=== PATIENT | female | born 1950 | race Caucasian/White ===

== ENCOUNTER → 2016-09-27 | Outpatient (CLI) | payer OTHER ==
--- NOTE | 2016-09-27 15:35 | MRI ---
EXAM DESCRIPTION: Cervical Spine CLINICAL HISTORY: OTHER SPONDYLOSIS W/ MYELOPATHY, CERV REGION neck pain, stiffness, arm tingling and pain COMPARISON: None Available TECHNIQUE: Multiplanar multi sequence noncontrast imaging FINDINGS: There is good alignment of the cervical spine. There is no vertebral abnormality. Craniocervical junction and the cord are unremarkable. A 1.53 cm diameter mass is observed in the right thyroid lobe. Further evaluation with sonography should be considered. C2-3: Unremarkable. C3-4: Unremarkable. C4-5: Disc desiccation is observed. Mild loss of disc height is noted. No significant disc bulge or disc herniation is seen. Facet joint and uncovertebral joint arthritis are seen to narrow the right neural foramen. C5-6: Mild loss of disc height is observed. Disc desiccation is noted. No significant disc bulge or disc herniation is seen. The neural foramina are preserved. C6-7: The disc is desiccated. Mild loss of disc height is observed. No significant disc bulge or disc herniation is seen. Mild bilateral neural foraminal narrowing is observed. C7-T1: Unremarkable. IMPRESSION: 1. A right thyroid lobe mass is observed. Further evaluation with sonography should be considered. 2. Right neural foraminal narrowing is observed at the C4-5 levels result of facet joint and uncovertebral joint arthritis. 3. Disc degenerative changes are seen at the C5-6 and C6-7 levels. There is some mild bilateral neural foraminal narrowing detected at the C6-7 level as a result of facet joint and uncovertebral joint arthritis. Electronically signed by: Kenyon Araujo MD 09/27/2016 3:34 PM CDT
== END | disposition home or self-care (01) ==
LOC: MRI 11:09
PROVIDERS: ATTEND Neurological Surgery
DX: M47.12 Other spondylosis with myelopathy, cervical region (principal)

== ENCOUNTER → 2016-12-26 | Outpatient (CLI) | payer OTHER | END | disposition home or self-care (01) | LOC: GMAL 16:57 | PROVIDERS: ATTEND Family Medicine | DX: E03.9 Hypothyroidism, unspecified (principal) ==

== ENCOUNTER → 2017-09-24 | Outpatient (CLI) | payer OTHER | LOC: GMAJS 16:30 | PROVIDERS: ATTEND Physician Assistant | DX: R30.0 Dysuria (principal) ==

== ENCOUNTER → 2018-03-01 | Day surgery (SDC) | payer OTHER ==
--- NOTE | 2018-02-26 08:49 | SSS ---
CHIEF COMPLAINT: Need for screening colonoscopy. HISTORY OF PRESENT ILLNESS: Ms. Monson is a 67-year-old female who presented to my office to schedule a colonoscopy. 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 She denies any symptoms referable to her bowels, specifically no abdominal pain, changes in her bowel habits or blood in her stool. Risks and benefits were discussed and she is agreeable to proceeding. PAST MEDICAL HISTORY: 1. Non-insulin dependent diabetes mellitus. 2. Hyperlipidemia. 3. Hypertension. 4. Gastroesophageal reflux disease, treated by Micheal fundoplication. 5. Restless leg syndrome. 6. Hypothyroidism. 7. Migraine headaches. 8. Depression. 9. Season allergies. PAST OBSTETRICAL HISTORY: She is 0, para 0. PAST SURGICAL HISTORY: 1. Right knee surgery in 1991. 2. Right elbow surgery in 1997. 3. Partial thyroidectomy for benign disease per the patient in 1999. 4. Laparoscopic Micheal fundoplication in 08/31/05. 5. Colonoscopy around 2003, results unknown. 6. Nuclear stress test in 2009 that showed normal perfusion with ejection fraction of 70%. CURRENT MEDICATIONS: 1. Levothyroxine. 2. Nortriptyline. 3. Aspirin 81 mg. 4. Topamax. 5. Lunesta. 6. Fish oil. 7. Lyrica. 8. Magnesium. 9. Multivitamins. 10. Restasis. 11. Calcium. 12. Relpax p.r.n. ALLERGIES: PENICILLIN WHICH CAUSES HIVES. FAMILY HISTORY: Her father at age 82 secondary to congestive heart failure. He also had a pacemaker. Her mother of congestive heart failure. She also had a four vessel coronary artery bypass graft and type 2 diabetes. She has one brother and two sisters. Carmita has breast cancer and Hermelinda is in good health. 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 She is . One of her husbands secondary to colon cancer. She has never smoked. She consumes alcohol perhaps once a month, usually wine. PHYSICAL EXAMINATION: VITAL SIGNS: Blood pressure 130/86. Pulse 89. GENERAL: She is awake, alert and in no acute distress. HEENT: Unremarkable. NECK: Supple. LUNGS: Clear. CARDIOVASCULAR: Regular rate and rhythm without appreciable murmurs. ABDOMEN: Soft, nontender. RECTAL: Deferred until time of colonoscopy. EXTREMITIES: Without edema. NEUROLOGIC: Nonfocal. ASSESSMENT: 1. Need for screening colonoscopy. PLAN: Colonoscopy on 03/01/18. [id number]
[~2018-03-01] MED LIST: LACTATED RINGERS 1,000 ML ONE; LIDOCAINE 1% 10 ML VIAL INJ ONE; PROPOFOL 200 MG/20 ML VIAL IV ONE
--- NOTE | 2018-03-01 08:48 | OP ---
DATE OF PROCEDURE: 03/01/18 PREOPERATIVE DIAGNOSIS: 1. Screening colonoscopy. POSTOPERATIVE DIAGNOSIS: 1. 0.75 x 1 cm hepatic flexure polyp, biopsied times 3 and removed by hot snare. 2. Mild melanosis coli in the rectum and distal sigmoid. 3. Grade 2 internal hemorrhoids. 4. Otherwise normal colonoscopy to the cecum/terminal ileum. PROCEDURE: 1. Colonoscopy. SURGEON: Kenyon Mcallister MD. ESTIMATED BLOOD LOSS: Less than 1 mL. COMPLICATIONS: No immediate complications. ANESTHESIA: Propofol 900 mg administered intravenously via Jet Hayes CRNA. TECHNIQUE: After informed consent was obtained from the patient, the patient was taken to the Endoscopy Suite and placed in the left lateral decubitus position. Vital signs were monitored throughout the procedure. Supplemental oxygen was administered throughout the procedure. After adequate conscious sedation was obtained, digital rectal examination was performed, which was unremarkable. The colonoscope was then advanced into the patient's rectum and up through the sigmoid, descending, transverse and ascending colon to the level of the cecum. There was a little bit of looping experienced in the hepatic flexure region, but with manual pressure and withdrawal and reinsertion, this was navigated. The usual cecal landmarks were noted. Just prior to reaching the cecum, in the hepatic flexure an approximately 1 x 1 cm polyp was noted and biopsied times 3. The cecum was then reached. The terminal ileum was entered. The terminal ileum, cecum and appendiceal orifice were all photographed. Upon withdrawal, I removed the polyp by hot snare. It was too large to go through the suction port, so we had a hold of it with biopsy forceps and removed it with the scope. The rest of the colon was visualized as well as possible, taking great care to try to visualize all meeks in 360 degree fashion. Overall, the bowel prep was quite good with the exception of the cecum where there was a moderate amount of liquid stool. Effort had been made to try to suction out as much of this as possible prior to removing the polyp at the hepatic flexure. There were no diverticula noted. In the rectum, the colonoscope was retroflexed upon itself. Grade 1 to 2 internal hemorrhoids were noted. The colonoscope was then unretroflexed and air was suctioned out of the patient's rectum. The colonoscope was removed from the patient. PLAN: She is to followup in my office in 7 to 10 days to review the pathology report. We will repeat her colonoscopy no greater than 3 years from now. This will depend on the polyp pathology. [id number]
[2018-03-01 09:35] VITALS: BP 144/97; TEMP 96.2; O2SAT 95
== END ==
LOC: AMB 05:49
PROVIDERS: ATTEND Family Medicine
DX: Z12.11 Encounter for screening for malignant neoplasm of colon (principal); D12.3 Benign neoplasm of transverse colon; K63.89 Other specified diseases of intestine; K64.1 Second degree hemorrhoids; E11.9 Type 2 diabetes mellitus without complications; E78.5 Hyperlipidemia, unspecified; I10 Essential (primary) hypertension; G25.81 Restless legs syndrome; G43.909 Migraine, unspecified, not intractable, without status migrainosus; F32.9 Major depressive disorder, single episode, unspecified; E89.0 Postprocedural hypothyroidism; E66.9 Obesity, unspecified; K21.9 Gastro-esophageal reflux disease without esophagitis; Z88.0 Allergy status to penicillin; Z79.84 Long term (current) use of oral hypoglycemic drugs; Z79.82 Long term (current) use of aspirin; Z79.899 Other long term (current) drug therapy
CPT/HCPCS: 00812; 36416; 45385; 82948; J3490; J7120

== ENCOUNTER → 2018-05-10 | Outpatient (CLI) | payer OTHER ==
--- NOTE | 2018-05-10 08:40 | RAD ---
EXAM DESCRIPTION: Pelvis CLINICAL HISTORY: 67 years Female, PAIN IN RIGHT HIP COMPARISON: None. TECHNIQUE: AP radiograph of the pelvis was performed. FINDINGS: The pelvic ring appears grossly intact on this single AP radiograph. No acute fracture or dislocation. Bilateral sacroiliac joints appear normal. Mild degenerative changes are identified in both hips.. The visualized lumbo-sacral spine demonstrates mild degenerative changes. IMPRESSION: Single AP radiograph of the pelvis demonstrates grossly intact pelvic ring. Mild bilateral hip osteoarthritis. Electronically signed by: Carmen Irvin MD 05/10/2018 8:38 AM [facility]
--- NOTE | 2018-05-10 08:41 | RAD ---
EXAM DESCRIPTION: Hip,Right 2 Views CLINICAL HISTORY: 67 years Female, PAIN IN RIGHT HIP COMPARISON: None available. FINDINGS: The visualized bones are well-mineralized.No acute fracture or dislocation. Mild degenerative changes are identified in the right hip. The soft tissues appear grossly unremarkable. IMPRESSION: Mild right hip osteoarthritis. Electronically signed by: Carmen Irvin MD 05/10/2018 8:39 AM [facility]
== END ==
LOC: RAD 07:54
PROVIDERS: ATTEND Orthopaedic Surgery
DX: M25.551 Pain in right hip (principal); M16.0 Bilateral primary osteoarthritis of hip

== ENCOUNTER → 2019-04-22 | Outpatient (CLI) | payer OTHER | LOC: GMAL 14:36 | PROVIDERS: ATTEND Family Medicine | DX: E53.8 Deficiency of other specified B group vitamins (principal); E03.9 Hypothyroidism, unspecified; E55.9 Vitamin D deficiency, unspecified; I10 Essential (primary) hypertension; E11.9 Type 2 diabetes mellitus without complications; E78.2 Mixed hyperlipidemia ==

== ENCOUNTER → 2019-12-19 | Outpatient (CLI) | payer OTHER ==
--- NOTE | 2019-12-20 13:49 | MRI ---
EXAM DESCRIPTION: Lumbar Spine w/o Contrast : Magnetic Resonance Imaging. CLINICAL HISTORY: INTERVERTEBRAL DISC DISORDERS WITH RADICULOPATHY COMPARISON: MRI cervical spine on this visit. TECHNIQUE: Multiplanar, multiple standard sequences, non contrast MRI, lumbar spine. FINDINGS: L5-S1: The disc is well visualized on axial T2 series 501, image 3. Normal signal in the disc with disc space preserved. Canal patent. Facet joints and ligaments negative. Mild bilateral foraminal narrowing. L4-L5: Disc desiccation with disc space preserved. Posterior talofibular ligaments and facet joints (canal elements are unremarkable. Minimal disc bulge into the left foramen without encroachment on the nerve but mild to moderate foraminal narrowing. L3-L4: Disc desiccation and posterior disc space narrowing. Minimal hypertrophy of the canal elements. Mild canal narrowing. Disc bulge into the left subarticular recess impressing on the descending left L4 nerve. Hyperintense T2 weighted annular fissure in the bulging segment. Moderate narrowing of the left foramen with disc abutting the left L3 nerve. L2-L3: Disc desiccation with anterior disc space loss. Mild endplate reactive changes in the inferior L2 endplate. Anterior spurs. Posterior broad-based bulging. Canal elements are unremarkable. Mild canal narrowing. Mild bilateral foraminal narrowing. L1-L2: Disc space preserved. Desiccation of the disc. Anterior bulging. No posterior bulging. Canal elements are unremarkable. Canal is patent. Increased T1-T2 and STIR signal in the left posterior L2 vertebral body, the base of the pedicle. No marrow edema. Possible atypical hemangioma. Foramina are patent. T12-L1: Minimal to moderate endplate reactive changes left of midline and Schmorl's node superior L1 endplate. Disc spaces preserved with normal signal in the disc. Canal elements are unremarkable. Canal and foramina are patent. Conus terminates at this level. No significant scoliosis or spondylolisthesis. Paravertebral soft tissues negative.. Distal cord normal signal and caliber. Inhomogeneous marrow signal in the remaining vertebral bodies and the posterior elements. Vertebral bodies are not compressed at any level. IMPRESSION: 1. Multilevel disc desiccation and bulging. Endplate spondylosis L2-3 and T12-L1. 2. Left posterior L3-L4 disc protrusion into the subarticular recess with impingement of the left L4 nerve. Bones also into the left foramen abutting the left L3 nerve. 3. Please refer to FINDINGS for discussion of results and other disc space levels. Electronically signed by: Arpan Thao MD 12/20/2019 1:47 PM CDT
--- NOTE | 2019-12-20 14:09 | MRI ---
EXAM DESCRIPTION: Cervical Spine: MRI. CLINICAL HISTORY: 69 years Female RADICULOPATHY CERVICAL REGION COMPARISON: MRI scan cervical spine September 2016. MRI scan lumbar spine without contrast on this visit. TECHNIQUE: Multiplanar, high-field MRI, multiple sequences, non-contrast Cervical spine. FINDINGS: C3-C4: Disc desiccation. Right side endplate reactive changes with narrowing of the right neural foramen. Minimal arthrosis in the facet joints. Canal is patent. C4-C5: Disc desiccation and minimal disc space loss with increased disc space loss and advanced endplate reactive changes right uncinate spur and right neural foraminal stenosis with compromised right C5 nerve.. Posterior disc bulge with endplate spurs narrowing the canal but no stenosis and mild retrolisthesis. Mild bilateral facet arthrosis. Left neuroforamen is patent. C5-C6: Disc desiccation and minimal disc space loss in the midline and left of midline and advanced right-sided plate reactive changes and disc space loss. Trace retrolisthesis. Uncinate spur and disc spur complex encroaching on the right neural foramen with compromise of the right C6 nerve. Posterior disc osteophyte bulge not abutting the cord. C6-C7: Disc desiccation minimal disc space loss bilaterally with multiple Schmorl's nodes in the inferior C6 endplate more than superior C7. Trace anterolisthesis. Disc bulge but not abutting the cord. Left uncinate spur. Near foraminal stenosis. Facet joints are negative. Normal signal in the C2-C3 disc, C7-T1 disc, and T1-2 disc with no bulging. Disc spaces preserved. Canal and neural foramina are patent. Facet joints are negative. Spinal alignment lordosis maintained. No cord compression or cord edema. Atlantoaxial joint mild arthrosis. Base of the cerebellar tonsils is above the foramen magnum. Paravertebral soft tissues are unremarkable. Vertebral bodies are not compressed at any level. Normal marrow signal in the remaining vertebral bodies and the posterior elements. IMPRESSION: 1. Multiple levels of spondylosis, disc desiccation, disc space loss, facet arthrosis, and spondylolisthesis. 2. Right-sided spondylosis at C4-C5 with right neural foraminal stenosis and compromise of the right C5 nerve. 3. Right-sided spondylosis at C5-C6 with moderate neural foraminal stenosis and compromise of the right C6 nerve. 4. Please refer to FINDINGS for discussion of results and other disc space levels. Electronically signed by: Arpan Thao MD 12/20/2019 2:07 PM CDT
== END ==
LOC: MRI 09:58
PROVIDERS: ATTEND Psychiatry & Neurology Neurology
DX: M47.22 Other spondylosis with radiculopathy, cervical region (principal); M50.11 Cervical disc disorder with radiculopathy, high cervical region; M50.121 Cervical disc disorder at C4-C5 level with radiculopathy; M50.122 Cervical disc disorder at C5-C6 level with radiculopathy; M50.123 Cervical disc disorder at C6-C7 level with radiculopathy; M48.02 Spinal stenosis, cervical region; M43.12 Spondylolisthesis, cervical region; M51.16 Intervertebral disc disorders with radiculopathy, lumbar region; M47.26 Other spondylosis with radiculopathy, lumbar region; M45.9 Ankylosing spondylitis of unspecified sites in spine; M25.50 Pain in unspecified joint; I61.9 Nontraumatic intracerebral hemorrhage, unspecified; I67.9 Cerebrovascular disease, unspecified; G37.9 Demyelinating disease of central nervous system, unspecified; F81.9 Developmental disorder of scholastic skills, unspecified; R53.83 Other fatigue; R50.9 Fever, unspecified; M79.7 Fibromyalgia; L81.2 Freckles; M10.9 Gout, unspecified; G44.1 Vascular headache, not elsewhere classified; I10 Essential (primary) hypertension; E03.9 Hypothyroidism, unspecified; Z79.899 Other long term (current) drug therapy; R41.3 Other amnesia; M35.1 Other overlap syndromes; G35 Multiple sclerosis; G70.00 Myasthenia gravis without (acute) exacerbation; G04.89 Other myelitis; M54.81 Occipital neuralgia; H46.9 Unspecified optic neuritis; M15.0 Primary generalized (osteo)arthritis; M81.8 Other osteoporosis without current pathological fracture; R53.81 Other malaise; Z74.09 Other reduced mobility; M35.3 Polymyalgia rheumatica; M33.22 Polymyositis with myopathy; G61.81 Chronic inflammatory demyelinating polyneuritis; I73.00 Raynaud's syndrome without gangrene; G25.89 Other specified extrapyramidal and movement disorders; M06.9 Rheumatoid arthritis, unspecified; D86.9 Sarcoidosis, unspecified; M32.10 Systemic lupus erythematosus, organ or system involvement unspecified; M31.6 Other giant cell arteritis

== ENCOUNTER → 2020-05-03 | Outpatient (CLI) | payer OTHER | LOC: GMAL 13:49 | PROVIDERS: ATTEND Family Medicine | DX: E53.8 Deficiency of other specified B group vitamins (principal); E03.9 Hypothyroidism, unspecified; E55.9 Vitamin D deficiency, unspecified; E11.9 Type 2 diabetes mellitus without complications; R53.82 Chronic fatigue, unspecified; E78.2 Mixed hyperlipidemia; Z79.899 Other long term (current) drug therapy ==